=== PATIENT | female | born 1965 | race Two or more races ===

== ENCOUNTER 2019-03-28 11:34 | Emergency (ER) | payer OTHER ==
[~2019-03-28] VITALS: Ht 152.4 cm; Wt 49.9 kg
[2019-03-28] MEDS ORDERED: SYNTHROID75 MCG (12:15)
[2019-03-28] MEDS ORDERED: WELLBUTRIN SR100 MG (12:15)
== END 2019-03-28 18:42 | disposition home or self-care (01) ==
LOC: ER 11:34
DX: J11.1 Influenza due to unidentified influenza virus with other respiratory manifestations (principal)

== ENCOUNTER 2024-07-01 06:17 | Day surgery (SDC) | payer OTHER ==
[2024-06-24 13:38] VITALS: BP 121/78
[~2024-07-01] VITALS: Ht 152.4 cm; Wt 49.9 kg
[~2024-07-01 06:17] MED LIST: DEXILANT60 MG PO; SYNTHROID75 MCG; SYNTHROID88 MCG PO; WELLBUTRIN SR100 MG
[2024-07-01] MEDS ORDERED: CLINDAMYCIN PHOSPHATE 150 MG/ML (900mg) ONE (11:07)
== END 2024-07-01 14:15 | disposition home or self-care (01) ==
LOC: CIR.AMB 06:17
PROVIDERS: ATTEND Surgery Surgery of the Hand
DX: D21.21 Benign neoplasm of connective and other soft tissue of right lower limb, including hip (principal); M67.441 Ganglion, right hand; E03.8 Other specified hypothyroidism; Z88.6 Allergy status to analgesic agent